=== PATIENT | female | born 1960 | race Two or more races ===

== ENCOUNTER 2019-03-09 04:34 | Emergency (ER) | payer MEDICARE ==
[~2019-03-09] VITALS: Ht 157.5 cm; Wt 81.6 kg
[2019-03-09 04:39] VITALS: BP 148/85
== END 2019-03-09 05:55 | disposition left against medical advice (07) ==
LOC: ER 04:34 → EDBD 04:34 → ER 05:55
DX: F10.10 Alcohol abuse, uncomplicated (principal); R10.30 Lower abdominal pain, unspecified; R11.2 Nausea with vomiting, unspecified; Z53.21 Procedure and treatment not carried out due to patient leaving prior to being seen by health care provider